=== PATIENT | female | born 1960 | race African-American/Black ===

== ENCOUNTER 2018-09-21 08:00 | Outpatient (CLI) | payer MEDICARE ==
[2016-03-05 21:57] VITALS: BMI 39.3
[~2018-09-21 08:00] MED LIST: BAYER CHEWABLE81 MG PO; FERROUS SULFAT325 MG PO; FUROSEMIDE40 MG PO; HYDROCODONE-APA1 TAB PO; K-TAB10 MEQ PO; PLAVIX75 MG PO; PRAVACHOL40 MG PO; SOMA350 MG PO; VITAMIN B COMPL1 TAB PO; XANAX2 MG PO
== END 2018-09-21 09:00 | disposition home or self-care (01) ==
LOC: D.MAMMO 08:00
DX: Z12.31 Encounter for screening mammogram for malignant neoplasm of breast (principal)

== ENCOUNTER → 2018-11-13 09:00 | Outpatient (CLI) | payer MEDICARE ==
[2016-03-05 21:57] VITALS: BMI 39.3
== END | disposition home or self-care (01) ==
LOC: D.MAMMO 10-14 14:30 → D.US 10-14 15:00 → D.MAMMO 09:00
PROVIDERS: ATTEND Family Medicine
DX: Z12.31 Encounter for screening mammogram for malignant neoplasm of breast (principal)

== ENCOUNTER → 2019-10-13 10:26 | Outpatient (CLI) | payer MEDICARE, MEDICAID ==
[2016-03-05 21:57] VITALS: BMI 39.3
--- NOTE | ~2019-10-13 | EC ---
PATIENT:LEOBARDO DAI DATE OF SERVICE: 10/13/19 SEX: F MEDICAL RECORD: [id number] DATE OF : 62 [facility] AGE OF PATIENT: 59 ADMISSION DATE: 10/13/19 REFERRING PHYSICIAN: INTERPRETING PHYSICIAN: JUAQUIN SALDIVAR MD ECHOCARDIOGRAM REPORT ECHO CHARGES 4 ECHO COMPLETE Date: 10/13/19 CLINICAL DIAGNOSIS: CAD/HX OF AFIB WITH ABLATION HX MR/TR ECHOCARDIOGRAPHIC MEASUREMENTS (adult normal given) AC root (d.<3.7cm) 2.9 cm LV Septum d (<1.2 cm> 1.1 cm Valve Excursion 1.3 cm LV Septum (systole) 1.3 cm Left Atria (s.<4.0cm> 4.1 cm LVPW d(<1.2cm) 1.1 cm RV (d.<2.3cm) 3.3 cm LVPW (sytole) 1.2 cm LV diastole(<5.6CM) 5.9 cm MV E-F(>70mm/sec) cm LV systole 4.9 cm LVOT Diameter 2.0 cm MV exc.(>10mm) 1.6 cm Est.ejection fraction (50-75%) % DOPPLER: LVIT cm/sec A 105.0cm/sec E 79.0 cm/sec LA cm/sec RVSP 33 mmHg LVOT 172 cm/sec AOP1/2T m/s Asc. Ao 178 cm/sec RVOT 65 cm/sec RA cm/sec PA 100 cm/sec AV Gradient Peak 12.62mmHg AV Mean 6.96 mmHg AV Area 3.3 cm MV Gradient Peak 7.41 mmHg MV Mean 2.95 mmHg MV Area cm COMMENTS: Mule Operator: 2 DAVIS RUIZ Paste Worker: 3 Dr. Sanchez TAPE# PACS Pericardial Effusion N DATE OF SERVICE: Adequate 2D, color flow imaging, spectral Doppler, and M-Mode. No LVH. LV internal dimensions are normal. Wall motion is normal. EF is greater than or equal to 55%. Aortic valve is tricuspid. No evidence of stenosis by Doppler interrogation. Left atrium is mildly dilated at 4.1 cm. Mitral valve shows no prolapse. Trace MR. Right-sided chambers are grossly normal. Mild TR. ECHOCARDIOGRAM REPORT [id number] LEOBARDO DAI TRANSINT:[id number] Voice Confirmation ID: [id number] DOCUMENT ID: [id number] JUAQUIN SALDIVAR MD CC: [id number] DICTATION DATE: 10/13/19 1558 WATER PROJECT ENGINEER: 10/13/19 2353 [place] [id number] [place] [id number]
== END | disposition home or self-care (01) ==
LOC: D.HCCECHO 10:26
PROVIDERS: ATTEND Internal Medicine Interventional Cardiology
DX: I25.119 Atherosclerotic heart disease of native coronary artery with unspecified angina pectoris (principal)

== ENCOUNTER → 2019-10-19 11:05 | Outpatient (CLI) | payer MEDICARE, MEDICAID ==
[~2019-10-19] VITALS: Ht 165.1 cm; Wt 112.7 kg
--- NOTE | ~2019-10-19 | HEMODYNAMI ---
PATIENT:LEOBARDO DAI MEDICAL RECORD: [id number] : 62 LOCATION:[facility] ADMISSION DATE: 10/19/19 Generatedon:10/19/201913:48 Patient name: LEOBARDO DAI Patient #: [id number] SSN: [id number] : 1960 Date of study: 10/19/2019 Page: Of Hemodynamic Procedure Report Patient Data Patient Demographics Procedure consent was obtained First Name: LEOBARDO Gender: Female Last Name: MALAIKA : 1960 Middle Initial: M Age: 59 year(s) Patient #: [id number] Race: Black SSN: [id number] Additional ID: [id number] Contact details [address]: [address] [place] [address] State: [place] City: [place] Zip code: [address] Past Medical History History of disease Date Diagnosis Comments CAD Allergies Allergen Reaction Date Comments Reported Other allergy 10/19/2019 cipro, pcn, pregabalin Admission Admission Data Admission Date: 10/19/2019 Admission Time: 11:05 Arrival Date: 10/19/2019 Arrival Time: 0:00 Insurance Payor: Medicare Height (in.): 65 BSA: 2.16 (m2) Height (cm.): 165.1 BMI: 40.77 (kg/m2) Weight (lbs.): 245 Weight (kg.): 111.13 Lab Results Lab Result Date: 10/19/2019 Lab Result Time: 0:00 Biochemistry Name Units Result Min Max Creatinine mg/dl 1.1 --(--*-)-- 0.6 1.3 eGFR ml/min 64.00204 *-(----)-- 90 120 AM Procedure Procedure Types Cath Procedure Diagnostic Procedure [facility] w/[facility] Procedure Description Procedure Date Procedure Date: 10/19/2019 Procedure Start Time: 13:36 Procedure End Time: 13:46 Procedure Staff Name Function Jaziel Valverde MD Performing Physician Savannah Triana RN Surveyor Rod Helper Hailey Pearce RN Nurse Nirmala Prater RT Scrub Procedure Data Cath Procedure Fluoroscopy Diagnostic fluoroscopy Total fluoroscopy Time: 1.1 time: 1.1 min min Diagnostic fluoroscopy Total fluoroscopy dose: 497 dose: 497 mGy mGy Contrast Material Contrast Material Type Amount (ml) Isovue 300 46 Entry Location Entry Primary Successful Side Size Upsize Upsize Entry Closure Succes sful Closure Location (Fr) 1 (Fr) 2 (Fr) Remarks Device Remarks Femoral Right 5 Fr Exoseal artery Estimated blood loss: 5 ml Diagnostic catheters Device Type Used For End Catheter Placement MULTIPACK JL 4.0 5Fr Procedure catheter MULTIPACK 3DRC 5Fr Procedure catheter MULTIPACK Pigtail 5 Fr Procedure catheter Procedure Complications No complications Procedure Medications Medication Administration Route Dosage 0.9% NaCl I.V. 100 ml/hr Lidocaine 2% added to field 20 Oxygen NC 2 l/min Heparin Flush Bag added to field 2 bags (1000units/500ml NS) Versed I.V. 1 mg Fentanyl I.V. 50 mcg Hemodynamics Rest BSA: 2.16 (m2) O2 Consumption: Estimated: 199.42 (ml/min) O2 Consumption indexed : Estimated:92.32 (ml/min/m) Heart Rate: 62 (bpm) Pressure Samples Time Site Value (mmHg) Purpose Heart Use Rate(bpm) 13:42 LV 136/13,17 Snapshot 64 Gradients Valve Time Site Site Mean SEP/DFP Peak To Heart Use 1 2 (mmHg) (sec/min) Peak Rate (mmHg) (bpm) Aortic 13:42 LV AO 65 Snapshots Pre Cath Intra NCS Post Cath Vital Signs Time Heart Resp SPO2 etCO2 NIBP (mmHg) Rhythm Pain Sedation Rate (ipm) (%) (mmHg) Status Level (bpm) 13:26:26 63 13 91 48.4 130/79(104) NSR 0 (11) 10(A) , No pain 13:30:57 62 15 100 41.8 129/65(107) NSR 0 (11) 10(A) , No pain 13:35:21 62 16 100 32.8 113/62(103) NSR 0 (11) 10(A) , No pain 13:39:47 64 18 100 1.4 115/55(93) NSR 0 (11) 9(A) , No pain 13:44:11 61 14 100 49.2 112/63(85) NSR 0 (11) 10(A) , No pain Medications Time Medication Route Dose Verified Delivered Reason Notes Effec tiveness by by 13:28:38 0.9% NaCl I.V. 100 Jaziel Jaziel used for ml/hr [facility] John procedure MD [place] 13:29:49 Lidocaine 2% added 20ml Jaziel Hailey to vial [place] Portia field MD HANS[place] 13:29:58 Oxygen NC 2 Jaziel Hailey for low l/min [facility] 02 sats MD HANSEN 13:30:10 Heparin Flush added 2 Jaziel Hailey used for Bag to bags [facility] procedure (1000units/500ml field MD HANSEN NS) 13:35:20 Versed I.V. 1 mg Jaziel Hailey for [place] Portia sedation MD HANSEN 13:44:29 Fentanyl I.V. 50 Jaziel Hailey for mcg [facility] sedation MD HANSENdrum sander setter Log Time Note 12:43:52 Informed consent obtained and on chart 12:46:23 Patient Weight : 245 lbs 12:46:33 Patient Height : 65 inches 12:46:37 Arrival Date: 10/19/2019 12:00:00 AM 12:54:55 Procedure Status Elective Heart Cath (OP). 12:55:42 Time tracking: Regular hours (M-F 7:00 - 5:00) 12:55:47 Plan of Care:Hemodynamics will remain stable., Cardiac rhythm will remain stable., Comfort level will be maintained., Respiratory function will remain adequate., Patient/ family verbilizes understanding of procedure., Procedure tolerated without complication., Recovers from procedure without complications.. 12:58:00 H&P Date Dictated: 10/19/2019 Greater than 30 days; new H&P dictated by physician. Or brief H&P completed., Emergent; H&P N/A, Within 30 days and on chart., H&P Addendum completed by physician on day of procedure. (MUST COMPLETE FOR ALL OUTPATIENTS), ER History on chart., New H&P dictated by physician.. 13:00:45 Patient allergic to Other allergycipro, pcn, pregabalin 13:00:58 Is the patient allergic to Iodine/contrast media? No. 13:00:59 Was the patient premedicated? N/A 13:02:53 Insurance Payor : Medicare 13:03:14 Lab Result : eGFR AM 64.68735 ml/min 13:03:14 Lab Result : Creatinine 1.1 mg/dl 13:03:23 Diagnostic Cath Status : Elective 13:03:52 ACC Patient presents with Unstable Angina CCS Anginal Class 3--Marked limitation of physical activity, angina occurs with ordinary activity.. 13:04:15 ACC The patient was administered the following blood thiners within the last 24 hours: ACCPlavix 13:04:18 Is patient on blood thinner?Yes 13:04:23 Patient diabetic? No. 13:04:49 Patient not . Patient is over age 55. 13:07:51 Risk of Mortality: 0.1 13:07:54 Risk of blood transfusion: 0.4 13:07:56 Risk of GURPREET: 0.6 13:08:04 Nirmala Prater RT(R) sent for patient. Start room use. 13:17:13 Patient received from Pre/Post Procedure Room to CCL 1 Alert and oriented. Tansferred to table in Supine position. 13:17:15 Warm blankets applied, and milton hugger turned on for patient comfort. 13:17:16 Correct patient and procedure confirmed by team. 13:17:16 ECG and BP/O2 sat monitors applied to patient. 13:17:34 Pre-procedure instructions explained to patient. 13:17:34 Pre-op teaching completed and patient verbalized understanding. 13:17:38 Patient NPO since Midnight. 13:17:41 Family in patients room. 13:24:43 Vital chart was started 13:28:38 0.9% NaCl 100 ml/hr I.V. was administered by Jaziel Valverde MD; used for procedure; Verbal order read back and verified. 13:29:49 Lidocaine 2% 20ml vial added to field was administered by Hailey Pearce RN; ; Verbal order read back and verified. 13:29:56 Baseline sample Acquired. 13:29:58 Oxygen 2 l/min NC was administered by Hailey Pearce RN; for low 02 sats; Verbal order read back and verified. 13:30:00 Rhythm: sinus rhythm 13:30:02 Full Disclosure recording started 13:30:10 Heparin Flush Bag (1000units/500ml NS) 2 bags added to field was administered by Hailey Pearce RN; used for procedure; Verbal order read back and verified. 13:30:11 Previous problem with sedation/anesthesia? No ? 13:30:13 Snore? Yes 13:30:16 Sleep apnea? No 13:30:18 Deviated septum? No 13:30:19 Opens mouth fully? Yes 13:30:21 Sticks out tongue? Yes 13:30:23 Airway obstruction? No ? 13:30:28 Dentures? Yes out 13:30:40 Pre procedure: right dorsailis pedis pulse 2+ Normal; easily identifiable; not easily obliterated 13:30:43 Patient pain scale 0/10 ?. 13:30:58 IV patent on arrival in right forearm with 0.9% NaCl at KVO. 13:31:18 Stress Test: no; N/A ? 13:31:21 Right groin area was prepped with chlora-prep and draped in sterile fashion 13:31:26 Alarms reviewed by R. N. 13:31:26 Sharps counted by scrub and verified by R.N. 13:34:27 --------ALL STOP TIME OUT------ 13:34:27 Final Timeout: patient, procedure, and site verified with staff and physician. All members of the team are in agreement. 13:34:28 Right groin site verified by team. 13:34:31 Fire Safety Assessment: A--An alcohol-based skin anteseptic being used preoperatively., C--Open oxygen or nitrous oxide is being used., D--An ESU, laser, or fiber-optic light is being used. 13:34:39 Physical assessment completed. ASA score P 2 - A patient with mild systemic disease as per Jaziel Valverde MD. 13:34:44 2) 60-89 Mildly reduced kidney function, and other findings (as for stage 1) point to kidney disease. 13:34:47 Maximum allowable contrast dose (3.7 X eGFR X 0.75)180 ml. 13:34:50 Sedation plan: IV Moderate Sedation Medication:Versed, Fentanyl 13:35:00 Use device set Femoral Dx 13:35:01 ACIST Syringe (72007) opened to sterile field. 13:35:02 Bag Decanter () opened to sterile field. 13:35:03 Medline Cath Pack ([id number]) opened to sterile field. 13:35:04 ACIST Hand Control (22413) opened to sterile field. 13:35:05 ACIST Manifold (19656) opened to sterile field. 13:35:05 DIAGNOSTIC Multipack 5Fr catheter set (PD3597) opened to sterile field. 13:35:08 SHEATH 5FR [place] (TVG359) opened to sterile field. 13:35:08 EMERALD Guide Wire (500-426) opened to sterile field. 13:35:20 Versed 1 mg I.V. was administered by Hailey Pearce RN; for sedation; Verbal order read back and verified. 13:35:50 Post-op/insertion site Right Femoral artery dressed using a 4 x 4 and Tegaderm. 13:36:38 Procedure started. 13:36:47 Local anesthetic to right femoral artery with Lidocaine 2% by Jaziel Valverde MD.INITIAL ACCESS ONLY 13:37:22 A 5 Fr sheath was inserted into the Right Femoral artery 13:38:11 A MULTIPACK JL 4.0 5Fr catheter was advanced over the wire and used for Procedure. 13:38:32 LCA angiography performed. 13:39:26 Catheter exchanged over wire. 13:39:57 A MULTIPACK 3DRC 5Fr catheter was advanced over the wire and used for Procedure. 13:40:44 RCA angiography performed. 13:41:04 ACCDominant side:Right 13:41:18 Catheter exchanged over wire. 13:41:26 A MULTIPACK Pigtail 5 Fr catheter was advanced over the wire and used for Procedure. 13:41:34 LV gram done using CHEN 13:41:37 LV hemodynamics recorded. 13:42:10 Injector settings: Ml/sec: 5, Volume: 15, 13:42:40 EF : 25 % 13:42:54 Catheter removed. 13:43:24 Sheath removed intact; hemostasis achieved with Exoseal to the Right Femoral artery. 13:43:29 Procedure ended.(Physican Out) 13:43:40 Fluoroscopy time 01.10 minutes. 13:43:43 Flurop Dose total: 497 13:43:43 Fluoroscopy dose: 497 mGy 13:43:48 Dose Area Product 78785 mGy/cm. 13:44:01 Contrast amount:Isovue 300 46ml. 13:44:03 Maximum allowable dose exceeded? No. 13:44:06 Sharps counted by scrub and verified by R.N. 13:44:29 Fentanyl 50 mcg I.V. was administered by Hailey Pearce RN; for sedation; Verbal order read back and verified. 13:44:46 Insertion/operative site no bleeding no hematoma. 13:44:55 Post right femoral artery:stable, soft, clean and dry 13:44:57 Post Procedure Pulses reassessed and unchanged 13:44:59 Post procedure: right dorsailis pedis pulse 2+ Normal; easily identifiable; not easily obliterated. 13:45:02 Post-procedure physical assessment completed. ASA score P 2 - A patient with mild systemic disease as per Jaziel Valverde MD. 13:45:04 Post procedure rhythm: unchanged. 13:45:07 Estimated blood loss: 5 ml 13:45:08 Post procedure instruction explained to patient.Patient verbalizes understanding. 13:45:11 Patient needs reinforcement of post procedure teaching. 13:45:11 Procedure and supply charges have been captured, reviewed, submitted and are correct. 13:46:18 Procedure Complication : No complications 13:46:21 Vital chart was stopped 13:46:23 [facility] Findings: mild to moderate CAD (<70%) 13:46:25 Operative report dictated upon procedure completion. 13:46:26 See physician's report for complete and final results. 13:46:27 Report given to Pre/Post Procedure Room. 13:46:31 Patient transfered to Pre/Post Procedure Room with Bed. 13:46:33 Procedure ended. 13:46:33 Full Disclosure recording stopped 13:46:37 End room use (Document Last) Device Usage Item Name Manufacture Quantity Catalog Hospital Part Current Minimal L ot# / Number Charge Number Stock Stock Serial# Code ACIST Acist 1 33631 [id number] 284337 [id number] 20 Syringe Medical (72372) Systems Inc Bag Microtek 1 188936 49866 179543 5 Decanter Medical Inc. () Medline Medline 1 [id number] 636015 74023 242526 5 Cath Pack ([id number]) ACIST Hand Acist 1 92393 602684 218814 365459 5 Control Medical (47882) Systems Inc ACIST Acist 1 84249 269212 098034 247880 5 Manifold Medical (81595) InView Technology DIAGNOSTIC Cardinal 1 [id number] 553635 80668 577937 30 MultipAirMedia 5Fr catheter set (JY7785) SHEATH 5FR Terumo 1 [id number] 258095 875718 002889 5 [place] (NQJ097) EMERALD Cardinal 1 582-358 947149 500887 372188 5 Guide Wire [facility] (152-154) MULTIPACK Cardinal 1 724967 5 JL 4.0 5Fr Health catheter MULTIPACK Cardinal 1 762736 5 3DRC 5Fr [facility] catheter MULTIPACK Cardinal 1 368199 5 Pigtail 5 Health Fr catheter Signature Audit [place]worth Stage Time Signature Unsigned Intra-Procedure 10/19/2019 Savannah Triana 1:46:54 PM RN Intra-Procedure 10/19/2019 Hailey 1:47:47 PM Portia RN Intra-Procedure 10/19/2019 Jaziel Florence 1:48:47 PM Jay [place] [facility] [address] [place] [address]
--- NOTE | ~2019-10-19 | OP ---
PATIENT NAME: LEOBARDO DAI MEDICAL RECORD: [id number] :62 LOCATION:D.[facility] ADMISSION DATE: SURGEON: JUAQUIN SALDIVAR MD DATE OF OPERATION: 10/19/2019 PROCEDURE: Left heart catheterization, selective coronary angiography, right femoral artery approach. CATHETERS: A 5-Scottish sheath, 5/4 left and right [place], 5/4 pig. The procedure was well tolerated and the patient returned to dunbar. Sheath removed. ExoSeal device placed. FINDINGS: Left ventriculography in 30-degree CHEN view shows global LV hypokinesis, reduced EF, estimated EF 25%. CORONARY ANATOMY: LEFT MAIN: Left main is free of disease. LAD: Free of diagnosis in the diagonal system. CIRCUMFLEX: Area of previous stent is totaled. There was some ghost filling with left to left collaterals to the small OM. RIGHT CORONARY ARTERY: Dominant artery gives rise to PDA, free of disease as well fills the circumflex with right to left collaterals. IMPRESSION: Cardiomyopathy. This is in excess of the ischemic burden here. We will begin Aldactone. Consider addition of Entresto and/or beta blockade in the near future. TRANSINT:[id number] Voice Confirmation ID: [id number] DOCUMENT ID: [id number] JUAQUIN SALDIVAR MD CC: [id number] DICTATION DATE: 10/19/19 1356 EXTRACT WRINGER: 10/20/19 0048 DEP CLI 10/19/19 [facility] [address] [place] [address]
[~2019-10-19 11:05] MED LIST changes: +ALDACTONE25 MG PO; +LIPITOR10 MG PO; +PROSCAR5 MG PO; +SYNTHROID25 MCG PO; +VENTOLIN HFA [SP8 GM INH
[2019-10-19 11:36] VITALS: BP 140/79; Ht 165.1 cm; Wt 112.7 kg
[2019-10-19 12:15] LABS: ANION GAP 10.7 mmol/L (8-16); CALCIUM 8.5 mg/dL (8.5-10.1); CHOL - HDL RATIO 3.9 ratio (2.3-4.1); CREATININE - SERUM 1.1 mg/dL (0.6-1.3); LDL-HDL RATIO 2.3 ratio (1.5-3.5); POTASSIUM - SERUM 3.7 mmol/L (3.5-5.1)
[2019-10-19 13:54] LABS: BASOPHILS 0.3 % (0-2); EOSINOPHILS 2.5 % (0-7); HEMATOCRIT 36.9 % (36.0-48.0); HEMOGLOBIN 12.1 g/dL (12-16); IMMATURE GRANULOCYTES 0.5 % (0-5); LYMPHOCYTES 29.9 % (15-50); MCH 27.9 pg (26.0-34.0); MCHC 32.8 g/dL (31.0-37.0); MCV 85.2 fL (80.0-100.0); MEAN PLATELET VOLUME 11.6 fL (7.4-10.4); MONOCYTES 4.6 % (2-11); NEUTROPHILS 62.2 % (40-80); RBC 4.33 10x6/uL (4.00-5.40); RDW 14.8 % (11.5-14.5); WBC 6.5 10x3/uL (4.8-10.8)
[2019-10-19 13:57] LABS: PLATELET COUNT 180 10x3/uL (130-400)
--- NOTE | 2019-10-19 14:00 | NUR ---
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 MONITORING INITIATED. R GROIN TEGADERM AND 4X4 CDI, GROIN SOFT, NO S/S BLEEDING OR HEMATOMA. FRIEND FROM [facility] WAS HERE FOR DR SALDIVAR TO SPEAK W AND FOR HER TRANSPORTATION HOME. INSTRUCTED TO KEEP HEAD ON PILLOW, KEEP RLE STRAIGHT AND STILL, FOR THE NEXT HOUR. PT AND FRIEND VERBALIZE UNDERSTANDING.
--- NOTE | 2019-10-19 14:15 | NUR ---
R GROIN CDI, NO S/S BLEEDING OR HEMATOMA. BP 137/74, HR NSR W OCC PVC 62, SAT 97% ON 2LNC. DROWSY, BUT ASKING THAT DR SALDIVAR COME TALK TO HER. WILL ASK HIM WHEN HE STEPS INTO UNIT TO SPEAK W OTHER PTS FAMILY.
--- NOTE | 2019-10-19 14:45 | NUR ---
R GROIN CDI, SOFT, NO S/S BLEEDING OR HEMATOMA. FAMILY AT BEDSIDE. INSTRUCTED ON WILL BE ABLE TO RAISE HOB IN 15 MINUTES AND ALSO HAVE SOMETHING TO EAT THEN. PT AND FAMILY VERBALIZE UNDERSTANDING.
--- NOTE | 2019-10-19 15:00 | NUR ---
RIGHT GROIN CDI, SOFT. NO S/S BLEEDING OR HEMATOMA. AWAKE, VISITING WITH FAMILY. HR NSR 68, BP 167/87, DR SALDIVAR IN SPEAKING W PT NOW. HOB UP FOR PT COMFORT, SANDWICH, CRACKERS AND SODA PROVIDED.
== END | disposition home or self-care (01) ==
LOC: D.CATH 11:05
PROVIDERS: ATTEND Internal Medicine Interventional Cardiology
DX: I25.119 Atherosclerotic heart disease of native coronary artery with unspecified angina pectoris (principal); I48.91 Unspecified atrial fibrillation; I10 Essential (primary) hypertension; E78.5 Hyperlipidemia, unspecified; R94.31 Abnormal electrocardiogram [ECG] [EKG]